=== PATIENT | male | born 1980 | race Hispanic/Latino ===

== ENCOUNTER 2024-03-31 09:27 | Emergency (ER) | payer SELFPAY ==
[2024-03-31] MEDS ORDERED: Bacitracin 1 PK ONE (09:49)
[2024-03-31] MEDS ORDERED: Boostrix 0.5 ML (Tdap) VIAL (>/=7 yrs of age) ONE (09:50)
== END 2024-03-31 10:25 | disposition home or self-care (01) ==
LOC: NAV ERS 09:27
DX: S61.213A Laceration without foreign body of left middle finger without damage to nail, initial encounter (principal); R03.0 Elevated blood-pressure reading, without diagnosis of hypertension; Z23 Encounter for immunization; W23.1XXA Caught, crushed, jammed, or pinched between stationary objects, initial encounter
CPT/HCPCS: 12002; 90471; 90715